=== PATIENT | female | born 1995 | race Caucasian/White ===

== ENCOUNTER 2023-07-04 02:37 | Inpatient (IN) | payer OTHER ==
[2023-07-04 02:57] VITALS: BMI 22.4
[2023-07-04 03:24] LABS: VENOUS BASE EXCESS -3.2 mmol/L (-2-2); VENOUS O2 SATURATION 35.9 % (70-80); VENOUS PCO2 44.9 mmHg (38-52); VENOUS PH 7.325 (7.310-7.410)
[2023-07-04 03:27] LABS: BASO % 0.2 % (0-2.0); HEMATOCRIT 39.3 % (32.4-45.2); HEMOGLOBIN 13.4 GM/dL (10.7-15.3); LYMPH % 5.2 % (8-40); MCH 31.3 pg (25.7-33.7); MCHC 34.1 g/dl (32.0-36.0); MEAN PLT VOLUME 8.4 fl (7.5-11.1); MONO % 13.9 % (3.8-10.2); NEUT % 80.7 % (42.8-82.8); PLATELET COUNT 285 10^3/uL (134-434); RBC 4.28 M/mm3 (3.60-5.2); RDW 13.6 % (11.6-15.6); WHITE BLOOD COUNT 14.6 K/mm3 (4.0-10.0)
[2023-07-04] MEDS: ALBUTEROL SO4 2.5/IPRATROPIUM 0.5 INH SOL 3 ML VIAL.NEB. NEB SCH ×4 (03:29→21:00)
[2023-07-04 03:39] LABS: POTASSIUM 3.6 mmol/L (3.5-5.1)
[2023-07-04 03:41] LABS: CALCIUM 8.6 mg/dL (8.5-10.1)
[2023-07-04 03:42] LABS: ALBUMIN 3.8 g/dl (3.4-5.0); BLOOD UREA NITROGEN 7.9 mg/dL (7-18); MAGNESIUM 2.9 mg/dL (1.8-2.4)
[2023-07-04 03:45] LABS: CREATININE 0.7 mg/dL (0.55-1.3)
[2023-07-04 03:46] LABS: BILIRUBIN,TOTAL 0.2 mg/dL (0.2-1)
[2023-07-04 03:48] LABS: TOT PROT 7.5 g/dl (6.4-8.2)
[2023-07-04] MEDS ORDERED: OSELTAMIVIR PHOSPHATE 75 MG CAPSULE PO ONE (05:47)
[2023-07-04] MEDS ORDERED: LACTATED RINGERS SOLUTION 1,000 ML/1,000 ML INFUS.BAG IV STA (06:12)
[2023-07-04] MEDS ORDERED: ALBUTEROL SULFATE 0.021% (0.63 MG/3 ML) VIAL.NEB NEB ONE (06:30)
[2023-07-04] MEDS ORDERED: ALBUTEROL SO4 0.083% IH SOL 2.5 MG/3 ML VIAL.NEB. NEB ONE (06:34)
[2023-07-04] MEDS ORDERED: methylPREDNISolone NA SUCC 40 MG/1 ML VIAL ONE ×3 (06:34→18:09)
[2023-07-04] MEDS ORDERED: OSELTAMIVIR PHOSPHATE 75 MG CAPSULE ONE ×2 (06:38→20:14)
[2023-07-04] MEDS: methylPREDNISolone NA SUCC 40 MG/1 ML VIAL IVPUSH SCH ×3 (06:42→18:13)
[2023-07-04] MEDS: MONTELUKAST NA 10 MG TABLET PO SCH ×2 (06:42→21:11)
[2023-07-04 06:46] LABS: POTASSIUM 3.1 mmol/L (3.5-5.1)
[2023-07-04 06:48] LABS: BLOOD UREA NITROGEN 7.8 mg/dL (7-18); MAGNESIUM 2.5 mg/dL (1.8-2.4)
[2023-07-04] MEDS ORDERED: MONTELUKAST NA 10 MG TABLET ONE ×2 (06:48→20:13)
[2023-07-04 06:51] LABS: CREATININE 0.7 mg/dL (0.55-1.3)
[2023-07-04] MEDS ORDERED: ONDANSETRON 4 MG/2 ML VIAL IVPUSH ONE (07:13)
[2023-07-04] MEDS ORDERED: ONDANSETRON 4 MG/2 ML VIAL ONE (08:22)
[2023-07-04] MEDS ORDERED: LACTATED RINGERS SOLUTION 1,000 ML/1,000 ML INFUS.BAG IV SCH (08:30)
[2023-07-04] MEDS ORDERED: KCL 10 MEQ IVPB 10 MEQ/100 ML INFUS.BAG IVPB ONE ×3 (10:47→17:20)
[2023-07-04] MEDS: BUDESONIDE/FORMETEROL FUMARATE 160/4.5 mcg INHALER IH SCH ×3 (10:57→21:11)
[2023-07-04] MEDS: KCL 10 MEQ IVPB 10 MEQ/100 ML INFUS.BAG IVPB SCH ×3 (10:58→17:30)
[2023-07-04] MEDS ORDERED: POTASSIUM CHLORIDE TABS 10 MEQ TABLET.ER (FP) PO ONE (10:58)
[2023-07-04] MEDS: ENOXAPARIN NA (PORCINE) 40 MG/0.4 ML DISP.SYRIN SQ SCH (11:00)
[2023-07-04] MEDS ORDERED: ALBUTEROL SO4 2.5/IPRATROPIUM 0.5 INH SOL 3 ML VIAL.NEB. NEB ONE ×4 (11:40→20:13)
[2023-07-04] MEDS ORDERED: POTASSIUM CHLORIDE TABS 20 MEQ TABLET.ER (FP) PO ONE (11:40)
[2023-07-04] MEDS ORDERED: ALBUTEROL SO4 0.083% IH SOL 2.5 MG/3 ML VIAL.NEB. NEB PRN (14:20)
[2023-07-04] MEDS ORDERED: PANTOPRAZOLE 40 MG TABLET PO ONE (17:20)
[2023-07-04] MEDS: PANTOPRAZOLE 40 MG TABLET PO SCH (17:34)
[2023-07-04 17:46] LABS: METHADONE, UR NEGATIVE (NEGATIVE); URINE AMPHETAMINES NEGATIVE (NEGATIVE); URINE BENZODIAZEPINES NEGATIVE (NEGATIVE)
[2023-07-04 17:47] LABS: PHENCYCLIDINE,URINE NEGATIVE (NEGATIVE); URINE BARBITURATES NEGATIVE (NEGATIVE)
[2023-07-04 17:50] LABS: COCAINE, UR NEGATIVE (NEGATIVE); OPIATES, URI POSITIVE (NEGATIVE)
[2023-07-04] MEDS: OSELTAMIVIR PHOSPHATE 75 MG CAPSULE PO SCH (21:11)
[2023-07-04] MEDS ORDERED: ACETAMINOPHEN 1000 MG/100 ML BAG IVPB PRN (23:53)
[2023-07-05] MEDS: methylPREDNISolone NA SUCC 40 MG/1 ML VIAL IVPUSH SCH ×3 (01:28→17:05)
[2023-07-05] MEDS: ALBUTEROL SO4 2.5/IPRATROPIUM 0.5 INH SOL 3 ML VIAL.NEB. NEB SCH ×3 (07:50→15:46)
[2023-07-05 09:01] VITALS: RESP 18
[2023-07-05 09:39] LABS: HEMATOCRIT 39.3 % (32.4-45.2); HEMOGLOBIN 13.5 GM/dL (10.7-15.3); MCH 31.9 pg (25.7-33.7); MCHC 34.3 g/dl (32.0-36.0); MEAN CELL VOLUME 92.8 fl (80-96); MEAN PLT VOLUME 9.3 fl (7.5-11.1); PLATELET COUNT 270 10^3/uL (134-434); RBC 4.23 M/mm3 (3.60-5.2); WHITE BLOOD COUNT 7.8 K/mm3 (4.0-10.0)
[2023-07-05] MEDS: ENOXAPARIN NA (PORCINE) 40 MG/0.4 ML DISP.SYRIN SQ SCH (09:50)
[2023-07-05] MEDS: PANTOPRAZOLE 40 MG TABLET PO SCH (09:50)
[2023-07-05] MEDS: BUDESONIDE/FORMETEROL FUMARATE 160/4.5 mcg INHALER IH SCH (09:55)
[2023-07-05] MEDS: OSELTAMIVIR PHOSPHATE 75 MG CAPSULE PO SCH (10:55)
[2023-07-05 11:37] LABS: POTASSIUM 4.6 mmol/L (3.5-5.1)
[2023-07-05 11:42] LABS: BLOOD UREA NITROGEN 13.8 mg/dL (7-18)
[2023-07-05 11:43] LABS: ALBUMIN 3.7 g/dl (3.4-5.0); MAGNESIUM 2.2 mg/dL (1.8-2.4)
[2023-07-05 11:45] LABS: PHOSPHOROUS 3.6 mg/dL (2.5-4.9)
[2023-07-05 11:46] LABS: CREATININE 0.7 mg/dL (0.55-1.3)
[2023-07-05 11:47] LABS: BILIRUBIN,TOTAL 0.2 mg/dL (0.2-1); TOT PROT 7.4 g/dl (6.4-8.2)
[2023-07-05 11:48] LABS: CALCIUM 9.5 mg/dL (8.5-10.1)
[2023-07-05 14:49] VITALS: BP 123/47; PULSE 103; TEMP 98.3
[2023-07-05] MEDS ORDERED: predniSONE 20 MG TABLET (UD) PO ONE (18:00)
[2023-07-06] MEDS ORDERED: predniSONE 20 MG TABLET (UD) PO ONE (17:31)
== END 2023-07-05 18:30 | disposition home or self-care (01) | DRG 141 ==
LOC: JER 02:37 → JERBED 02:46 → J5S 23:39
PROVIDERS: ADMIT Internal Medicine; ATTEND Internal Medicine
DX: J45.41 Moderate persistent asthma with (acute) exacerbation (principal); E87.6 Hypokalemia; D72.829 Elevated white blood cell count, unspecified; F17.210 Nicotine dependence, cigarettes, uncomplicated; J10.1 Influenza due to other identified influenza virus with other respiratory manifestations; J30.2 Other seasonal allergic rhinitis; K21.9 Gastro-esophageal reflux disease without esophagitis; R11.10 Vomiting, unspecified; R61 Generalized hyperhidrosis; R68.83 Chills (without fever)
CPT/HCPCS: 0241U-QW; 36415; 71045-TC-FY; 80048; 80053; 80307; 82803; 83735; 84100; 84703; 85025; 85027; 93005; 93010; 94640; 99285-25